=== PATIENT | female | born 1955 | race Caucasian/White ===

== ENCOUNTER 2020-04-18 08:46 | Emergency (ER) | payer MEDICARE, MEDICAID ==
[~2020-04-18] VITALS: Ht 154.9 cm; Wt 101.4 kg
[~2020-04-18 08:46] MED LIST: ACET325T14 PO; ALBU8.5H5 INH; BUPR-86 PO; DIVA500T4 PO; GUAI5SYR PO; LEVO500T8 PO; OXYGEN INH; PRED10TA PO
[2020-04-18] MEDS ORDERED: SODIUM CHLORIDE FLUSH 10ML SYR IVF ONE (09:30)
[2020-04-18 09:45] LABS: BASOPHILS % (AUTO) 1 % (0-1); EOSINOPHILS % (AUTO) 1 % (1-7); LYMPHOCYTES % (AUTO) 19 % (22-44); MEAN CORPUSCULAR HEMOGLOBIN 31.3 pg (27.0-34.8); MEAN CORPUSCULAR HGB CONC 33.3 g/dL (32.4-35.8); MEAN PLATELET VOLUME 7.8 fL (7.4-10.4); MONOCYTES % (AUTO) 9 % (2-9); NEUTROPHILS % (AUTO) 71 % (42-75); PLATELET COUNT 234 x10^3/uL (130-400); RED BLOOD COUNT 4.65 x10^6/uL (3.82-5.3); RED CELL DISTRIBUTION WIDTH 14.4 % (9.6-15.2)
[2020-04-18 09:46] LABS: MD NO
[2020-04-18 09:54] LABS: ALANINE AMINOTRANSFERASE 23 U/L (12-78); ALBUMIN 3.7 g/dL (3.4-5.0); ANION GAP 4 mmol/L (5-15); CALCIUM 9.5 mg/dL (8.5-10.1); CHLORIDE 102 mmol/L (98-107); CREATININE 0.57 mg/dL (0.55-1.02)
[2020-04-18 09:58] LABS: ALKALINE PHOSPHATASE 105 U/L (45-117); BILIRUBIN,TOTAL 0.7 mg/dL (0.2-1.0); TOTAL PROTEIN 7.5 g/dL (6.4-8.2)
--- NOTE | 2020-04-18 09:58 | NUR ---
PT TO XRAY
--- NOTE | 2020-04-18 10:20 | NUR ---
CALLED [facility], STATED THEY DIDN'T RECIEVE UA. RECOLLECTED AND SENT AGAIN.
[2020-04-18] MEDS ORDERED: ALBUTEROL/IPRATROPIUM 2.5MG/0.5MG, 3 ML ONE (10:35)
[2020-04-18 10:39] VITALS: BP 129/70
[2020-04-18 10:51] LABS: MICROSCOPIC NOT IND
[2020-04-18] MEDS ORDERED: ALBUTEROL/IPRATROPIUM 2.5MG/0.5MG, 3 ML NPPB ONE (11:00)
[2020-04-18] MEDS ORDERED: MAGNESIUM CITRATE 300ML ORAL SOL ONE (11:35)
== END 2020-04-18 11:56 | disposition home or self-care (01) ==
LOC: ED 09:04
DX: J44.1 Chronic obstructive pulmonary disease with (acute) exacerbation (principal); G89.29 Other chronic pain; R10.84 Generalized abdominal pain; K59.00 Constipation, unspecified; R06.02 Shortness of breath; R06.00 Dyspnea, unspecified; E11.9 Type 2 diabetes mellitus without complications; R00.0 Tachycardia, unspecified; I50.9 Heart failure, unspecified; F17.210 Nicotine dependence, cigarettes, uncomplicated
CPT/HCPCS: 36415; 74022; 80053; 81003; 83690; 83880; 84484; 85025; 93005; 94640; 99285; 99406